=== PATIENT | female | born 1940 | race Caucasian/White ===

== ENCOUNTER 2018-05-25 01:00 | Inpatient (IN) | payer MEDICARE, BC ==
[2018-05-24 14:23] LABS: INR 0.97
--- NOTE | 2018-05-24 19:50 | HISTORY AND PHYSICAL ---
DATE OF ADMISSION: May 25, 2018 IDENTIFICATION/CHIEF COMPLAINT Ailin is a 77-year-old woman with the chief complaint of right knee pain. HISTORY OF PRESENT ILLNESS The patient has a long-standing history of knee arthritis, progressively painful and debilitating, refractory to conservative care. Surgery is indicated to relieve symptoms after failure of nonoperative measures. PAST MEDICAL HISTORY * History of atrial fibrillation. * History of coronary artery disease. * Chronic cough. * Hypercholesterolemia. * Acid reflux disease. PAST SURGICAL HISTORY * Contralateral knee replacement. * Cholecystectomy. * Hysterectomy. * Vein stripping. * Stomach operation. ALLERGIES * CODEINE which leads to vomiting. * SULFA which leads to nausea and vomiting. CURRENT MEDICATIONS * Nortriptyline 10 mg two tablets daily. * Pravastatin 40 mg p.o. q.day. * Trazodone 100 mg p.o. q.day. * Domperidone 10 mg p.o. b.i.d. * Furosemide 60 mg p.o. q.day. * Pantoprazole 40 mg p.o. q.day. * Baby aspirin a day. SOCIAL HISTORY Notable for previous smoking of half a pack of cigarettes per day from 1959- 1989. She has not smoked since. She rarely drinks alcohol. Denies drug abuse. FAMILY HISTORY Notable for mother, aunt and uncle and a brother all with blood clots. Father and brother with heart disease. REVIEW OF SYSTEMS Otherwise negative. PHYSICAL EXAMINATION GENERAL: This is a well-developed, well-nourished female who appears staged age. HEENT: Normocephalic, atraumatic. NECK: Supple. LUNGS: Clear. HEART: Regular. ABDOMEN: Soft. ORTHOPEDIC EXAM: The right knee has crepitus. She has an effusion. She is stiff at end range. Extensor function intact. Gross stability is good. IMAGING Radiographs demonstrate end-stage knee arthritis. ASSESSMENT Right knee end-stage degenerative joint disease progressively painful and debilitating, refractory to conservative care. PLAN Per patient request we are going to proceed with knee replacement surgery. The nature of this procedure, risks, benefits, the anticipated rehab course were reviewed. The risks of the procedure include, but are not limited to , major medical or anesthetic complication, infection, neurovascular injury, blood transfusion, stiffness, scarring, fracture, tendon rupture or instability , implant loosening, migration or failure, persistent or recurrent pain, need for additional surgery and other unforeseen. She understands and wishes to proceed. A signed permit was placed in the chart. No guarantees are given or implied. WILLIAM
[2018-05-25] VITALS (9 sets, daily range): BP systolic 95–128; BP diastolic 53–69
[~2018-05-25] VITALS: Ht 154.9 cm; Wt 84.4 kg
[~2018-05-25 01:00] MED LIST: ASPI-1471 PO; ASPI-715 PO; B2/V1TAB5 PO; CALC-547 PO; DOMPERIDONE PO; ENO40I SQ; FERG324 PO; FURO-47 PO; GLUC-307 PO; METO-253 PO; MULT-820 PO; NOR10 PO; OXY10 PO; PANT40TA65 PO; PER PO; POTA25TA28 PO; PRAV40TA77 PO; TRAM100T22 PO; TRAZ100T31 PO; [UNRECOGNIZED DRUG - CODE] PO; dex60pt PO
[2018-05-25] MEDS ORDERED: fentaNYL CITR 100 MCG/2 ML AMP ONE (09:41)
[2018-05-25] MEDS ORDERED: ONDANSETRON 4 MG/2 ML VIAL ONE (09:42)
[2018-05-25] MEDS ORDERED: PROPOFOL EMUL(*) 10MG/ML 20 ML 20 ML ONE (09:42)
[2018-05-25] MEDS ORDERED: LIDOCAINE MPF 1% 5 ML VIAL ONE (09:42)
[2018-05-25] MEDS ORDERED: DEXAMETHASONE SOD PHOS 10MG/ML ONE (09:42)
[2018-05-25] MEDS ORDERED: MIDAZOLAM 2 MG/2 ML VIAL ONE (09:42)
[2018-05-25] MEDS ORDERED: cloNIDine EPIDUR INJ 100MCG/ML 40 MCG, ROPIVACAINE 0.5% 20 ML VIAL 25 ML, EPINEPHrine H... INJ ONE (10:00)
[2018-05-25] MEDS ORDERED: MIDAZOLAM 2 MG/2 ML VIAL IVP PRN (10:00)
[2018-05-25] MEDS ORDERED: LIDOCAINE/SOD BICARB 8.4% SYR ID ONE (10:00)
[2018-05-25] MEDS ORDERED: TRANEXAMIC AC 1000 MG/10ML SDV 1,000 MG in DEXTROSE 5% 50 ML BAG 50 ML IV ONE (10:00)
[2018-05-25] MEDS ORDERED: PREGABALIN 75 MG CAPSULE PO ONE (10:00)
[2018-05-25] MEDS ORDERED: CLINDAMYCIN(*) 900 MG/NS 50 ML 50 ML IVPB ONE (10:00)
[2018-05-25] MEDS ORDERED: NORMOSOL R SOLN(*) 1000 ML BAG 1,000 ML IV PRN ×2 (10:00→14:30)
[2018-05-25] MEDS ORDERED: ACETAMINOPHEN 500 MG TAB PO ONE (10:00)
[2018-05-25] MEDS ORDERED: PHENYLEPHRINE 10 MG/1 ML VIAL ONE (11:44)
[2018-05-25] MEDS ORDERED: GLYCOPYRROLATE 1 MG/5 ML INJ ONE (11:56)
[2018-05-25] MEDS ORDERED: FLUSH 10 ML SYR IVP PRN (14:30)
[2018-05-25] MEDS ORDERED: BISACODYL 10 MG SUPP PR PRN (14:30)
[2018-05-25] MEDS ORDERED: BENZOCAINE/MENTHOL 1 EACH LOZG PO PRN (14:30)
[2018-05-25] MEDS ORDERED: MAGNESIUM HYDROXIDE* 30ML UDCP PO PRN (14:30)
[2018-05-25] MEDS ORDERED: ZOLPIDEM TARTRATE 5 MG TAB PO PRN (14:30)
[2018-05-25] MEDS ORDERED: DIAZEPAM 5 MG TAB PO PRN (14:30)
[2018-05-25] MEDS ORDERED: diphenhydrAMINE 25 MG CAP PO PRN (14:30)
[2018-05-25] MEDS ORDERED: ACETAMINOPHEN 325 MG TAB PO PRN (14:30)
[2018-05-25] MEDS ORDERED: PROMETHAZINE 25 MG/ML 1 ML AMP IVP PRN (14:30)
[2018-05-25] MEDS ORDERED: diphenhydrAMINE 50 MG/ML VIAL IVP PRN (14:30)
[2018-05-25] MEDS: APAP/HYDROCODONE 325/7.5 TAB PO PRN ×2 (15:11→19:59)
--- NOTE | 2018-05-25 15:25 | RADIOLOGY IMAGING REPORT ---
FACILITY: [facility] PATIENT NAME: Ailin Ayala : 1940 MR: [id number] V: [id number] EXAM DATE: ORDERING PHYSICIAN: SHELBY MCKEON TECHNOLOGIST: Location: [facility] [place] Patient: Ailin Ayala : 1940 Visit/Account:[id number] Date of Sevice: 05/25/2018 Exam type: KNEE LIMITED RIGHT History: S/P TOTAL KNEE ARTHROPLASTY, CHECK PLACEMENT Comparison: None. Findings: AP and lateral views the right knee demonstrate a right knee arthroplasty in good anatomic alignment. Soft tissue gas and skin north project over the anterior aspect this postoperative knee IMPRESSION: 1. As above Report Dictated By: Eliana Salazar MD at 05/25/2018 3:21 PM Report E-Signed By: Eliana Salazar MD at 05/25/2018 3:21 PM WSN:[id number]
[2018-05-25] MEDS: CELECOXIB 200 MG CAP PO SCH (17:27)
--- NOTE | 2018-05-25 17:31 | OPERATIVE REPORT 1 ---
EVENT DATE: May 25, 2018 SURGEON: Anthony Bolden MD ANESTHESIOLOGIST: Miles Alfaro MD ANESTHESIA: General plus spinal. SAND ANALYST: Serge Jose PA-C PREOPERATIVE DIAGNOSIS Right knee degenerative joint disease. POSTOPERATIVE DIAGNOSIS Right knee degenerative joint disease. PROCEDURE PERFORMED Right total knee arthroplasty. ESTIMATED BLOOD LOSS Minimal. DRAINS None. SPECIMENS None. COMPLICATIONS None apparent. TOURNIQUET TIME 42 minutes IMPLANTS USED [employer] Triathlon knee system with 4 right PS femur, 4 standard tibial baseplate , 33 mm universal, cemented, all-polyethylene patellar button, and a 16 mm PS tibial tray liner. Polyethylene is X3. INDICATIONS Ailin is a 77-year-old woman with intractable pain and late end-stage knee arthritis. Surgery is indicated to relieve symptoms after failure of nonoperative measures. DESCRIPTION OF PROCEDURE Patient was taken to the operating room and placed supine on the operating table. Spinal block was administered by the anesthesiologist. General anesthesia was induced. Antibiotics and TXA were administered IV. Right lower extremity was prepped and draped in the usual sterile fashion for knee arthroplasty. Limb was exsanguinated with an Esmarch bandage. Tourniquet inflated to 300 mmHg. A midline longitudinal incision made, carried down through the skin and subcutaneous tissue to the extensor mechanism. Full- thickness flaps were developed far enough medially to allow medial parapatellar arthrotomy be performed. Patella was everted. Knee was brought into the flexed position. Fat pad, anterior horns of the menisci, and the cruciate ligaments are debrided. A subperiosteal medial released is initiated in a titrated fashion to start to balance the varus knee. A step drill is used to enter the distal femur. A 10-inch long alignment guide is used to engage the isthmus, cut set for 6 degrees of valgus relative to the anatomic axis. The 10 mm resection block is applied, pinned, and cuts made with an oscillating saw. AP sizing guide is applied to the distal femoral cut, positioned for 3 degrees of external rotation relative to the posterior condyles. The size 4 is optimal without risk of notching. The four-in-one cutting block is applied. Anterior, posterior, posterior chamfer, and anterior chamfer cuts are made respectively. PS block is applied and centered. Medial and lateral bone is removed through the box. Trial femur has nice [id number] fit. Attention is turned to tibial preparation. The extramedullary guide is applied, positioned for varus, valgus , posterior slope, and rotation. This is set to resect 9 mm from the relatively intact lateral tibial plateau. Block is pinned. Extramedullary alignment check is made. Cuts made with an oscillating saw. After osteophyte removal, the knee is balanced with symmetric and even gaps. A size 4 tibial baseplate provides optimum bony coverage without soft tissue overhang. This is inserted along with the trial liner and the trial femur. Knee is brought to extension. Patella is taken from the starting thickness of 19 mm to a residual of 14 with a patellar clamp and oscillating saw. The 33 provides optimum bony coverage without soft tissue overhang. Lug holes are drilled. Patella tracks nicely with the no-touch technique. Final tibial preparation consists of assuring appropriate rotational and translational positioning of the component. The boss is reamed. Fin is punched. Surfaces are lavaged. Mixed methacrylate is made and the components cemented in a single stage. Once the cement is fully polymerized, tourniquet is deflated. Hemostasis is assured. Wound is copiously lavaged to remove all loose debris. The 16 PS tibial tray liner fills up the gap ideally, allowing the knee to drop to full extension without hyperextension, providing optimal soft tissue tension and stability. The tray is lavaged and dried, and the actual liner is locked into the baseplate. Joint is reduced. Arthrotomy is closed in flexion with #2 Ethibond , subcutaneous tissue with 3-0 Vicryl, skin with surgical north. Xeroform and 4 x 4's applied as a dry, sterile dressing and compression wrap. The patient was awakened from anesthesia and taken to the recovery room in stable condition having tolerated the procedure well. Plan is for standard TKA rehab protocol. [id number]
[2018-05-25] MEDS: PANTOPRAZOLE SOD 40 MG TABEC PO SCH (17:57)
--- NOTE | 2018-05-25 18:01 | Hospitalist Consultation ---
History of Present Illness Requesting Physician Dr. Bolden Reason for Consult Medical Management Chief Complaint s/p right knee replacement History of Present Illness She was admitted s/p right knee replacement. It is reported the surgery went well and without complication. History Problems: (1) GERD (gastroesophageal reflux disease) Status: Chronic (2) Hypertension Status: Chronic (3) Hyperlipidemia Status: Chronic (4) Gastroparesis Status: Chronic (5) Paroxysmal atrial fibrillation Status: Chronic (6) Breast cancer Status: Resolved Home Meds Reported Medications Pantoprazole Sodium (PANTOPRAZOLE SODIUM) 40 Mg Tablet.dr, 40 MG PO QDAY, TAB.SR 05/18/18 Furosemide (FUROSEMIDE) 40 Mg Tablet, 60 MG PO DAILY, TAB 05/18/18 [Domperidone] No Conflict Check, 10 MG PO BID 05/18/18 Trazodone Hcl (TRAZODONE HCL) 100 Mg Tablet, 100 MG PO HS, TAB 05/18/18 Nortriptyline Hcl (NORTRIPTYLINE HCL) 10 Mg Cap, 10 MG PO AFTER DINNER, CAP 05/18/18 Potassium Bicarbonate/Cit Ac (POTASSIUM 25 MEQ TABLET EFF) 25 Meq Tablet.eff, 10 MEQ PO QODAY 05/18/18 Metoprolol Tartrate (METOPROLOL TARTRATE) 50 Mg Tab, 1 TAB PO DAILY, TAB 05/18/18 Aspirin (ASPIR 81) 81 Mg Tablet.dr, 81 MG PO QDAY, TAB 05/18/18 B2/Vit A,C & E/Lut/Zeaxanth/Mn (ICAPS TABLET) 1 Each Tablet.er, 1 EACH PO DAILY 05/18/18 Vitamin E (Vitamin E) 1,000 Unit Capsule, 1000 UNIT PO DAILY, 0 Refills 09/05/10 Calcium Carbonate/Vitamin D3 (Calcium + D 600 Mg Tablet) 1 Each Tablet, 1 EACH PO DAILY, 0 Refills 09/05/10 Pravastatin Sodium (Pravachol) 40 Mg Tablet, 40 MG PO HS, 0 Refills 09/05/10 Discontinued Reported Medications Ferrous Gluconate (Ferrous Gluconate) 325 Mg Tablet, 325 MG PO BID, #60 0 Refills 09/13/10 Enoxaparin Sodium (Lovenox) 40 Mg/0.4 Ml Syr, 40 MG SQ QDAY, #14 0 Refills 09/13/10 Oxycodone Hcl (Oxycontin) 10 Mg Tabcr, 10 MG PO Q12H, #20 0 Refills 09/13/10 Oxycodone/Acetaminophen (OXYCODONE/ACETAMINOPHEN 5MG/325 MG) 5 Mg/325 Mg Tab, 1 - 2 TAB PO Q4-6H Y, #50 0 Refills 09/13/10 Multivitamins (Multivitamin) 1 Tab Tablet, 1 TAB PO DAILY, 0 Refills 09/05/10 Dexlansoprazole (Kapidex) 60 Mg Sridhar., 60 MG PO DAILY, 0 Refills 09/05/10 Allergies: Coded Allergies: Penicillins (Verified Allergy, Intermediate, ANAPHYLAXIS, 05/18/18) Sulfa (Sulfonamide Antibiotics) (Verified Adverse Reaction, Mild, NAUSEA/ VOMITING, 05/18/18) codeine (Verified Adverse Reaction, Mild, NAUSEA/VOMITING, 05/18/18) morphine (Verified Adverse Reaction, Mild, NAUSEA/VOMITING, 05/18/18) Uncoded Allergies: ADHESIVES (Adverse Reaction, Unknown, 05/18/18) Hx Smoking: Yes (SMOKED 1/2 PPD X 28 YRS. QUIT 1989) Smoking Status: Former Smoker When Quit Tobacco?: 1989 Caffeine Intake: Coffee Caffeine/Cups Per Day: 2 Hx Alcohol Use: No Hx Substance Use Disorder: No Social Drug Use: Never History of IV Drug Use: No Review of Systems All Systems Reviewed/Normal: Yes, Except as Noted Exam Vital Signs Vital Signs Date Time Temp Pulse Resp B/P (MAP) Pulse Ox O2 Delivery O2 Flow Rate FiO2 05/25/18 15:04 97.6 66 108/65 (79) 100 Nasal Cannula 4.0 05/25/18 15:00 16 General Appearance: Alert, Awake, No Acute Distress, Afebrile Neuro: No Gross deficits Cardiovascular: Regular Rate and Rhythm Respiratory: No Respiratory Distress, Clear to Auscultation GI: Abd Soft and Non-Tender Extremities: Warm, Perfused Psych: Alert & Oriented X3, Appropriate Mood & Affect Assessment and Plan Problems: (1) Status post right knee replacement Status: Acute Assessment & Plan: Followed by Dr. Bolden. She will be placed on Xarelto for DVT prophylaxis. She does have history of DVT to the right lower extremity. (2) Hypertension Status: Chronic Assessment & Plan: She is on chronic treatment with Toprol XL and Lasix. The Toprol has been restarted with hold parameters. (3) Paroxysmal atrial fibrillation Status: Chronic Assessment & Plan: She will be placed on Telemetry. She has many QT prolonging medications she takes also. (4) Hyperlipidemia Status: Chronic Assessment & Plan: She is on chronic treatment with Pravastatin. (5) Gastroparesis Status: Chronic Assessment & Plan: She is on chronic treatment with Domperidone. She states she receives this from [facility]. This medication will be held at this time. (6) GERD (gastroesophageal reflux disease) Status: Chronic Assessment & Plan: She is on chronic treatment with Omeprazole. She will be placed on Protonix throughout admission. Venous Thromboembolism Antithrombotics Is Pt On Any Antithrombotics?: Yes LINDA HAMILTON STEEPING PRESS TENDER May 25, 2018 18:01
[2018-05-25] MEDS: CLINDAMYCIN(*) 900 MG/NS 50 ML 50 ML IVPB SCH (19:59)
[2018-05-25] MEDS: PRAVASTATIN SOD 20 MG TAB PO SCH (21:57)
[2018-05-26] VITALS (7 sets, daily range): BP systolic 88–137; BP diastolic 50–83; Ht 154.9 cm; Wt 84.4 kg
[2018-05-26] MEDS: APAP/HYDROCODONE 325/7.5 TAB PO PRN ×4 (01:37→20:24)
[2018-05-26] MEDS: CLINDAMYCIN(*) 900 MG/NS 50 ML 50 ML IVPB SCH ×2 (04:12→11:47)
[2018-05-26] MEDS ORDERED: KETOROLAC 15 MG/ML VIAL IVP ONE (06:55)
[2018-05-26] MEDS: CELECOXIB 200 MG CAP PO SCH ×2 (08:36→17:31)
[2018-05-26] MEDS: METOPROLOL SUCC XL 50 MG TABCR 50 MG TAB.ER.24H PO SCH (08:37)
[2018-05-26] MEDS: RIVAROXABAN 10 MG TAB PO SCH (08:37)
--- NOTE | 2018-05-26 10:49 | Hospitalist Progress Note ---
Subjective Progress Notes Subjective She has complaints of right leg pain, which started last night. She states, " her calf and thigh feel tight" and it "would feel better if she walked". She had no acute events overnight. Patient Complains of: Cardiovascular: No: Chest Pain Respiratory: No: Shortness of Breath Musculoskeletal: Pain Physical Exam Vital Signs Date Time Temp Pulse Resp B/P (MAP) Pulse Ox O2 Delivery O2 Flow Rate FiO2 05/26/18 10:08 72 05/26/18 10:05 97 Nasal Cannula 2.0 05/26/18 07:57 98.0 14 116/62 (80) Intake and Output 05/27/18 01:00 Intake Total 340 ml Balance 340 ml Intake Oral 240 ml IV Total 100 ml # Voids 1 General Appearance: Alert, Awake, No Acute Distress, Afebrile Neuro: No Gross deficits Cardiovascular: Regular Rate and Rhythm Respiratory: No Respiratory Distress, Clear to Auscultation Extremities: Edema (non-pitting edema bilaterally) Psych: Alert & Oriented X3, Appropriate Mood & Affect Assessment and Plan Problems: (1) Status post right knee replacement Status: Acute Assessment & Plan: Followed by Dr. Bolden. She will be placed on Xarelto for DVT prophylaxis. She does have history of DVT to the right lower extremity. She will work with physical therapy this morning, we will re-evaluate her leg pain after. It appears to be muscular in nature. Her muscles feel tight to the leg, she does not appear to be swelling more than her usual per patient. (2) Hypertension Status: Chronic Assessment & Plan: She is on chronic treatment with Toprol XL and Lasix. The Toprol has been restarted with hold parameters. (3) Paroxysmal atrial fibrillation Status: Chronic Assessment & Plan: She will be placed on Telemetry. She has many QT prolonging medications she takes also. (4) Hyperlipidemia Status: Chronic Assessment & Plan: She is on chronic treatment with Pravastatin. (5) Gastroparesis Status: Chronic Assessment & Plan: She is on chronic treatment with Domperidone. She states she receives this from [facility]. This medication will be held at this time. (6) GERD (gastroesophageal reflux disease) Status: Chronic Assessment & Plan: She is on chronic treatment with Omeprazole. She will be placed on Protonix throughout admission. Exam Sepsis Risk: No Definite Risk LINDA HAMILTON EDUCATION ADMINISTRATOR May 26, 2018 10:48
[2018-05-26] MEDS: PANTOPRAZOLE SOD 40 MG TABEC PO SCH (16:48)
[2018-05-26] MEDS: NORTRIPTYLINE HCL 10 MG CAP PO SCH (17:31)
[2018-05-26] MEDS: PRAVASTATIN SOD 20 MG TAB PO SCH (20:24)
[2018-05-26] MEDS: traZODone HCL 50 MG TAB PO SCH (20:24)
[2018-05-27 02:40] VITALS: BP 136/65
[2018-05-27] MEDS: APAP/HYDROCODONE 325/7.5 TAB PO PRN ×4 (02:48→22:24)
[2018-05-27 07:19] VITALS: BP 125/59
[2018-05-27] MEDS: METOPROLOL SUCC XL 50 MG TABCR 50 MG TAB.ER.24H PO SCH ×2 (07:58→08:02)
[2018-05-27] MEDS ORDERED: FUROSEMIDE 20 MG TAB PO ONE (08:25)
[2018-05-27] MEDS: CELECOXIB 200 MG CAP PO SCH ×2 (08:57→16:23)
[2018-05-27] MEDS: RIVAROXABAN 10 MG TAB PO SCH (08:58)
[2018-05-27] MEDS: METOPROLOL SUCC XL 25 MG TABCR PO SCH (08:58)
--- NOTE | 2018-05-27 11:26 | Hospitalist Progress Note ---
Subjective Progress Notes Subjective She has no complaints this morning. She had no acute events overnight. Patient Complains of: Cardiovascular: No: Chest Pain Respiratory: No: Shortness of Breath Physical Exam Vital Signs Date Time Temp Pulse Resp B/P (MAP) Pulse Ox O2 Delivery O2 Flow Rate FiO2 05/27/18 09:00 85 05/27/18 08:00 Nasal Cannula 1.0 05/27/18 07:19 98.0 74 125/59 (81) 05/27/18 02:40 18 Intake and Output 05/28/18 01:00 Intake Total 240 ml Balance 240 ml Intake Oral 240 ml # Voids 2 General Appearance: Alert, Awake, No Acute Distress, Afebrile Neuro: No Gross deficits Cardiovascular: Regular Rate and Rhythm Respiratory: No Respiratory Distress, Clear to Auscultation GI: Soft and Non-Tender Extremities: Edema (non-pitting edema noted bilaterally) Psych: Alert & Oriented X3, Appropriate Mood & Affect Assessment and Plan Problems: (1) Status post right knee replacement Status: Acute Assessment & Plan: Followed by Dr. Bolden. She will be placed on Xarelto for DVT prophylaxis. She does have history of DVT to the right lower extremity. She reports the calf pain improved yesterday. (2) Hypertension Status: Chronic Assessment & Plan: She is on chronic treatment with Toprol XL and Lasix. The Toprol and Lasix have been restarted with hold parameters. (3) Paroxysmal atrial fibrillation Status: Chronic Assessment & Plan: She was placed on Telemetry. She has many QT prolonging medications she takes also. (4) Hyperlipidemia Status: Chronic Assessment & Plan: She is on chronic treatment with Pravastatin. (5) Gastroparesis Status: Chronic Assessment & Plan: She is on chronic treatment with Domperidone. She states she receives this from [facility]. This medication will be held at this time. (6) GERD (gastroesophageal reflux disease) Status: Chronic Assessment & Plan: She is on chronic treatment with Omeprazole. She will be placed on Protonix throughout admission. Exam Sepsis Risk: No Definite Risk LINDA HAMILTONP May 27, 2018 11:26
[2018-05-27] MEDS ORDERED: POLYETHYLENE GLYCOL 17 GM PKT PO PRN (12:05)
[2018-05-27 14:08] VITALS: BP 121/71
[2018-05-27 14:12] VITALS: BP 133/77
[2018-05-27] MEDS: PANTOPRAZOLE SOD 40 MG TABEC PO SCH (16:23)
[2018-05-27] MEDS: NORTRIPTYLINE HCL 10 MG CAP PO SCH (16:23)
--- NOTE | 2018-05-27 18:39 | Medical Nutrition Therapy ---
Nutrition Anthropometrics Height (Inches): 61.00 Height (Calculated Centimeters: 154.805111 Weight (Pounds): 186 Weight (Calculated Kilograms): 84.368 Godfrey Nutrition Score: Adequate Godfrey Nutrition Risk Score: 18 Dietary Referral Nutrition Risk Factors: Nutrition Risk Comment: Physical Findings Physical Appearance: Obese BMI 30-39 Skin Appearance Skin Appearance: Edema Edema Location Modifier: Both Edema Location: Lower Extremity Type of Edema: Degree of Edema: 2+ Gastrointestinal Symptoms GI Symtoms: Tube Present: Bowel Sounds: Recent Bowel Pattern: Stool Characteristics: Nutritional Diagnosis Nutritional Risk Acuity 2: GI Malabsorption (gastroparesis) Past Medical History: gastroparesis, a-fib, htn, GERD Nutritional Acuity: 2-Moderate Nutrition Diagnosis: Altered GI Function Nutrition Etiology: Physiological Causes Nutrition Problem/Etiology/Sym: AEB dx gastroparesis Energy Requirement: 1660 ([place]) Protein Requirement: 75 (.9gm/kg) Fluid Requirement: 1660 (1ml/kcal) Diet Type: Diet as Tolerated ARIA/REG Nutrition Intervention: Cont diet as ordered, Encourage intake Additional Diet Restrictions: ENCOURAGE LOW FAT, LOW FIBER Nutrition Monitoring & Eval Nutrition Goals: Eat 75-100% Meal, Drink > 2 liters/day Nutrition Follow-Up: Good Intake RD Patient Assessment Time: [address] Assessment Type: RD Assessment Patient Nutrition Acuity: 2-Moderate Follow Up Date: Jun 01, 2018 Nutritional Comment: 05/26 Pt admitted s/p right knee replacement. Pt on regular diet and ate 75% of first meal post op. Pt has hx of gastoparesis. BMI is in class 2 obesity range. Will cont to monitor and encourage intake. 05/27 Pt cont on regular diet intake 75-100%. Pt states hx of gastroparesis. Will encourage low fat , low fiber foods. Will cont to monitor and encourage intake. JUAN MIGUEL PEREZ May 27, 2018 11:02
[2018-05-27 19:31] VITALS: BP 129/64
[2018-05-27] MEDS: traZODone HCL 50 MG TAB PO SCH (21:03)
[2018-05-27] MEDS: PRAVASTATIN SOD 20 MG TAB PO SCH (21:04)
[2018-05-27 22:21] VITALS: BP 118/60
[2018-05-28 02:07] VITALS: BP 126/73
[2018-05-28 07:58] VITALS: BP 133/69
[2018-05-28] MEDS: CELECOXIB 200 MG CAP PO SCH (08:00)
[2018-05-28] MEDS: RIVAROXABAN 10 MG TAB PO SCH (08:33)
[2018-05-28] MEDS: METOPROLOL SUCC XL 25 MG TABCR PO SCH (08:33)
[2018-05-28] MEDS ORDERED: HYDR-4308 PO (09:31)
--- NOTE | 2018-05-28 09:33 | Hospitalist Progress Note ---
Subjective Progress Notes Subjective She has no complaints this morning. She had no acute events overnight. Patient Complains of: Cardiovascular: No: Chest Pain Respiratory: No: Shortness of Breath Physical Exam Vital Signs Date Time Temp Pulse Resp B/P (MAP) Pulse Ox O2 Delivery O2 Flow Rate FiO2 05/28/18 08:01 90 05/28/18 08:01 Room Air 05/28/18 07:58 98.3 68 12 133/69 (90) 05/28/18 02:07 1.0 Intake and Output 05/29/18 07:00 # Voids 1 General Appearance: Alert, Awake, No Acute Distress, Afebrile Neuro: No Gross deficits Cardiovascular: Regular Rate and Rhythm Respiratory: No Respiratory Distress, Clear to Auscultation GI: Soft and Non-Tender Psych: Alert & Oriented X3, Appropriate Mood & Affect Assessment and Plan Problems: (1) Status post right knee replacement Status: Acute Assessment & Plan: Followed by Dr. Bolden. She will be placed on Xarelto for DVT prophylaxis. She does have history of DVT to the right lower extremity. (2) Hypertension Status: Chronic Assessment & Plan: She is on chronic treatment with Toprol XL and Lasix. The Toprol and Lasix doses have been cut in half secondary to lower blood pressures. She will follow up with Dr. Pitts next week regarding further recommendations. (3) Paroxysmal atrial fibrillation Status: Chronic Assessment & Plan: She was placed on Telemetry. She has many QT prolonging medications she takes also. (4) Hyperlipidemia Status: Chronic Assessment & Plan: She is on chronic treatment with Pravastatin. (5) Gastroparesis Status: Chronic Assessment & Plan: She is on chronic treatment with Domperidone. She states she receives this from [facility]. (6) GERD (gastroesophageal reflux disease) Status: Chronic Assessment & Plan: She is on chronic treatment with Omeprazole. She will be placed on Protonix throughout admission. Exam Sepsis Risk: No Definite Risk LINDA HAMILTON May 28, 2018 09:33
[2018-05-28] MEDS ORDERED: RIVA10TA PO (09:50)
== END 2018-05-28 10:45 | disposition home or self-care (01) | DRG 470 ==
LOC: OR 01:00 → MED 15:00
PROVIDERS: ADMIT Orthopaedic Surgery; ATTEND Orthopaedic Surgery
PROC: 0SRC0J9 Replacement of Right Knee Joint with Synthetic Substitute, Cemented, Open Approach (ICD-10-PCS; principal; 2018-05-25 11:19)
DX: M17.11 Unilateral primary osteoarthritis, right knee (principal); I25.10 Atherosclerotic heart disease of native coronary artery without angina pectoris; K21.9 Gastro-esophageal reflux disease without esophagitis; I10 Essential (primary) hypertension; I48.0 Paroxysmal atrial fibrillation; R05 Cough; E78.5 Hyperlipidemia, unspecified; K31.84 Gastroparesis; Z85.3 Personal history of malignant neoplasm of breast; Z88.0 Allergy status to penicillin; Z88.5 Allergy status to narcotic agent; Z96.652 Presence of left artificial knee joint; Z90.49 Acquired absence of other specified parts of digestive tract; Z90.710 Acquired absence of both cervix and uterus; Z88.2 Allergy status to sulfonamides; Z87.891 Personal history of nicotine dependence; Z86.718 Personal history of other venous thrombosis and embolism
CPT/HCPCS: 36415; 85610; 86850; 86900; 86901; 97161; J0171; J0735; J1100; J1885; J2001; J2250; J2370; J2405; J2704; J2795; J3010; J3490; J7050; J7060